=== PATIENT | female | born 1995 | race Caucasian/White ===

== ENCOUNTER 2016-08-13 11:27 | Outpatient (CLI) | payer MEDICAID ==
[2016-08-14 17:32] LABS: Chlamydia by PCR Not Detected (NotDetected); GC by PCR Not Detected (NotDetected)
== END 2016-08-13 11:28 | disposition home or self-care (01) ==
LOC: MADLABBHPM 11:27
PROVIDERS: ATTEND Family Medicine
DX: N89.8 Other specified noninflammatory disorders of vagina (principal); R30.0 Dysuria
CPT/HCPCS: 36415; 87086; 87480; 87491; 87510; 87591; 87660

== ENCOUNTER 2016-09-18 14:02 | Outpatient (CLI) | payer MEDICAID | END 2016-09-18 14:03 | disposition home or self-care (01) | LOC: MADLABBHPM 14:02 | PROVIDERS: ATTEND Family Medicine | DX: Z11.3 Encounter for screening for infections with a predominantly sexual mode of transmission (principal) | CPT/HCPCS: 36415; 87480; 87491; 87510; 87591; 87660 ==

== ENCOUNTER 2019-07-15 20:04 | Emergency (ER) | payer MEDICAID, SELFPAY ==
[2019-07-15] MEDS ORDERED: Dexamethasone 10 MG/ML VIAL ONE (20:22)
[2019-07-15] MEDS ORDERED: diphenhydrAMINE 25 MG CAP ONE (20:22)
== END 2019-07-15 20:53 | disposition home or self-care (01) ==
LOC: MADERS 20:04
DX: T78.1XXA Other adverse food reactions, not elsewhere classified, initial encounter (principal); J02.9 Acute pharyngitis, unspecified
CPT/HCPCS: 96372; 99283; J1100; Q0163

== ENCOUNTER 2022-07-03 14:04 | Outpatient (CLI) | payer SELFPAY | END 2022-07-03 14:05 | disposition home or self-care (01) | LOC: MADLABBHPM 14:04 → MADLAB 14:05 | PROVIDERS: ATTEND Family Medicine | DX: Z01.419 Encounter for gynecological examination (general) (routine) without abnormal findings (principal) | CPT/HCPCS: 87624; 88175 ==